=== PATIENT | male | born 1995 | race African-American/Black ===

== ENCOUNTER 2018-06-28 08:44 | Emergency (ER) | payer MEDICAID, MEDICARE, OTHER, SELFPAY ==
[~2018-06-28] VITALS: Ht 167.6 cm; Wt 68.2 kg
[2018-06-28] MEDS ORDERED: NS 1,000 ML IV ONE (09:15)
[2018-06-28] MEDS ORDERED: ONDANSETRON 4MG/2ML VIAL (J2405) IV ONE (09:15)
[2018-06-28] MEDS ORDERED: KETOROLAC 30 MG/ML VIAL (J1885) IV ONE (09:30)
[2018-06-28 09:32] LABS: BASO # 0.1 10^3/uL (0.0-0.2); BASO % 1.3 % (0.0-1.0); EOS # 0.2 10^3/uL (0.0-0.50); HEMATOCRIT 46.8 % (42.0-52.0); HEMOGLOBIN 15.7 g/dl (13.5-17.5); LYMPH % 36.8 % (24.0-44.0); MEAN CORPUSCULAR HEMOGLOBIN 29.2 pg (27.0-33.0); MEAN CORPUSCULAR HGB CONC 33.5 g/dl (32.0-36.5); MONO # 0.5 10^3/uL (0.0-0.8); MONO % 9.1 % (0.0-5.0); NEUTROPHILS # 2.7 10^3/uL (1.8-7.7); NEUTROPHILS % 49.1 % (36.0-66.0); PLATELET COUNT, AUTOMATED 287 10^3/uL (150-450); RED BLOOD COUNT 5.38 10^6/uL (4.30-6.10); WHITE BLOOD COUNT 5.4 10^3/uL (4.0-10.0)
[2018-06-28 09:54] LABS: ALBUMIN 4.2 GM/DL (3.2-5.2); ALT/SGPT 37 U/L (12-78); AMYLASE 130 U/L (25-115); BILIRUBIN,TOTAL 0.3 MG/DL (0.2-1.0); BLOOD UREA NITROGEN 15 MG/DL (7-18); CALCIUM LEVEL 9.1 MG/DL (8.5-10.1); CARBON DIOXIDE LEVEL 28 MEQ/L (21-32); CHLORIDE LEVEL 103 MEQ/L (98-107); CREATININE FOR GFR 0.96 MG/DL (0.70-1.30); GLOMERULAR FILTRATION RATE > 60.0 (>60); GLUCOSE, FASTING 97 MG/DL (70-100); LIPASE 102 U/L (73-393); POTASSIUM SERUM 3.8 MEQ/L (3.5-5.1); SODIUM LEVEL 139 MEQ/L (136-145); TOTAL PROTEIN 8.5 GM/DL (6.4-8.2)
[2018-06-28 10:13] LABS: INFLUENZA A AMPLIFICATION NEGATIVE (NEGATIVE); INFLUENZA B AMPLIFICATION NEGATIVE (NEGATIVE)
[2018-06-28] MEDS ORDERED: ZOFR4TAB14 PO (10:26)
[2018-06-28] MEDS ORDERED: METOCLOPRAMIDE INJ 10MG/2ML VIAL (J2765) IV ONE (10:30)
[2018-06-28] MEDS ORDERED: REGL10TA6 PO (10:59)
[2018-06-28 11:05] VITALS: BP 115/65
== END 2018-06-28 11:09 | disposition home or self-care (01) ==
LOC: M ED 08:44
DX: R10.84 Generalized abdominal pain (principal); R11.2 Nausea with vomiting, unspecified; F17.200 Nicotine dependence, unspecified, uncomplicated
CPT/HCPCS: 80053; 82150; 83690; 85025; 87502; 87880; 96374; 96375; 99284; J1885; J2405; J2765

== ENCOUNTER 2018-07-17 10:15 | Emergency (ER) | payer MEDICAID, MEDICARE ==
[~2018-07-17] VITALS: Ht 167.6 cm; Wt 68.6 kg
[~2018-07-17 10:15] MED LIST: REGL10TA6 PO; ZOFR4TAB14 PO
--- NOTE | 2018-07-17 11:33 | REP ---
Chest two views HISTORY: Cough Comparison: None The lungs are clear. The heart is normal in size. The pulmonary vasculature is normal in appearance. The bony structure is intact. IMPRESSION: No acute disease. Electronically Signed by Josh Hutton MD 07/17/2018 11:24 A
[2018-07-17 11:34] LABS: INFLUENZA A AMPLIFICATION NEGATIVE (NEGATIVE); INFLUENZA B AMPLIFICATION NEGATIVE (NEGATIVE)
[2018-07-17] MEDS ORDERED: TESS100C PO (12:08)
[2018-07-17 12:26] VITALS: BP 136/78
== END 2018-07-17 12:28 | disposition home or self-care (01) ==
LOC: M ED 10:15
DX: J06.9 Acute upper respiratory infection, unspecified (principal); F17.210 Nicotine dependence, cigarettes, uncomplicated